=== PATIENT | male | born 1995 | race Caucasian/White ===

== ENCOUNTER 2017-11-29 19:58 | Emergency (ER) | payer BC ==
[~2017-11-29] VITALS: Ht 177.8 cm; Wt 74.3 kg
[2017-11-29 20:04] VITALS: BP 145/84
[2017-11-29] MEDS ORDERED: FAMOTIDINE 20 MG TABLET PO ONE (20:30)
[2017-11-29] MEDS ORDERED: DIPHENHYDRAMINE 25 MG CAPSULE PO ONE (20:30)
[2017-11-29] MEDS ORDERED: FAMOTIDINE 20 MG TABLET ONE (20:33)
[2017-11-29] MEDS ORDERED: DIPHENHYDRAMINE 25 MG CAPSULE ONE (20:33)
[2017-11-29] MEDS ORDERED: ASPI1TAB31 PO (20:40)
[2017-11-29] MEDS ORDERED: IBUP200C5 PO (20:40)
[2017-11-29 21:12] LABS: BASOPHILS # (AUTO) 0.04 x10^3/uL (0-0.1); BASOPHILS % (AUTO) 1 % (0-1); EOSINOPHILS # (AUTO) 0.11 x10^3/uL (0-0.4); EOSINOPHILS % (AUTO) 1 % (1-7); LYMPHOCYTES # (AUTO) 2.69 x10^3/uL (1-3.4); LYMPHOCYTES % (AUTO) 34 % (22-44); MD NO; MEAN CORPUSCULAR HEMOGLOBIN 29.5 pg (27.5-34.5); MEAN CORPUSCULAR HGB CONC 33.8 g/dL (33.2-36.2); MEAN CORPUSCULAR VOLUME 87.2 fL (81-97); MEAN PLATELET VOLUME 7.2 fL (7.4-10.4); MONOCYTES # (AUTO) 0.59 x10^3/uL (0.2-0.8); MONOCYTES % (AUTO) 8 % (2-9); NEUTROPHILS # (AUTO) 4.41 x10^3/uL (1.8-6.8); NEUTROPHILS % (AUTO) 56 % (42-75); PLATELET COUNT 268 x10^3/uL (130-400); RED BLOOD COUNT 5.42 x10^6/uL (4.38-5.82); RED CELL DISTRIBUTION WIDTH 12.3 % (9.4-14.8)
[2017-11-29 21:24] LABS: ANION GAP 5 mmol/L (5-15); CALCIUM 9.4 mg/dL (8.5-10.1); CHLORIDE 107 mmol/L (98-107); CREATININE 1.14 mg/dL (0.7-1.3)
== END 2017-11-29 22:12 | disposition home or self-care (01) ==
LOC: ED 22:00
DX: L25.9 Unspecified contact dermatitis, unspecified cause (principal); T78.3XXA Angioneurotic edema, initial encounter
CPT/HCPCS: 36415; 80048; 85025; 99284; J7512; Q0163

== ENCOUNTER 2020-03-18 08:16 | Day surgery (SDC) | payer OTHER ==
[~2020-03-18] VITALS: Ht 177.8 cm; Wt 81.6 kg
[~2020-03-18 08:16] MED LIST: ASPI1TAB31 PO; IBUP-1623 PO
[2020-03-18] MEDS ORDERED: LACTATED RINGERS 1,000 ML IV SCH (09:04)
[2020-03-18] MEDS ORDERED: HYDR-3240 PO (09:11)
[2020-03-18] MEDS ORDERED: BUPIVACAINE/PF 0.5% ONE (09:24)
[2020-03-18] MEDS ORDERED: CHLORHEXIDINE 15 ML UDC MM ONE (09:30)
[2020-03-18] MEDS ORDERED: MIDAZOLAM 1 MG/ML, 2ML ONE (09:31)
[2020-03-18] MEDS ORDERED: FENTANYL PF 100 MCG/2ML ONE ×3 (09:31→12:08)
[2020-03-18 09:34] VITALS: BP 134/74
[2020-03-18] MEDS ORDERED: PROPOFOL 10 MG/ML, 100ML IV ONE (09:54)
[2020-03-18] MEDS ORDERED: DEXAMETHASONE 4 MG/ML, 1ML ONE (09:54)
[2020-03-18] MEDS ORDERED: ONDANSETRON 2MG/ML, 2ML ONE (09:54)
[2020-03-18] MEDS ORDERED: LIDOCAINE 2%, 20ML ONE (09:54)
[2020-03-18] MEDS ORDERED: CEFAZOLIN PMX 1GM/50ML ONE (09:54)
[2020-03-18] MEDS ORDERED: PROMETHAZINE 25 MG/ML, 1ML IVPush PRN (10:30)
[2020-03-18] MEDS ORDERED: FENTANYL PF 100 MCG/2ML IV PRN (10:30)
[2020-03-18] MEDS ORDERED: OXYcodone 5 MG/5 ML ORAL.SOL UDC PO PRN (10:30)
[2020-03-18] MEDS ORDERED: HYDROmorphone 1 MG/ML, 1ML INJ IVPush PRN (10:30)
[2020-03-18] MEDS ORDERED: MEPERIDINE/PF 25MG/0.5ML IVPush PRN (10:30)
[2020-03-18] MEDS ORDERED: HYDROcodone/APAP 7.5-325MG/15ML UDC PO PRN (10:30)
[2020-03-18] MEDS ORDERED: OXYcodone 5 MG/5 ML ORAL.SOL UDC ONE (11:33)
[2020-03-18] MEDS ORDERED: MEPERIDINE/PF 25MG/ML,1ML ONE (11:33)
== END 2020-03-18 13:15 | disposition home or self-care (01) ==
LOC: OUT 08:16
PROVIDERS: ATTEND Orthopaedic Surgery Hand Surgery
DX: S52.572A Other intraarticular fracture of lower end of left radius, initial encounter for closed fracture (principal); Z20.828 Contact with and (suspected) exposure to other viral communicable diseases; Z79.891 Long term (current) use of opiate analgesic; V86.56XA Driver of dirt bike or motor/cross bike injured in nontraffic accident, initial encounter; Y93.55 Activity, bike riding; Y92.89 Other specified places as the place of occurrence of the external cause; Y99.8 Other external cause status
CPT/HCPCS: 25609; 73100; 76000; 87635; C1713; J0690; J1100; J2175; J2250; J2405; J2704; J3010; J7120